=== PATIENT | male | born 1960 | race Caucasian/White ===

== ENCOUNTER 2018-01-29 08:31 | Emergency (ER) | payer SELFPAY ==
[2018-01-29 08:45] VITALS: TEMP 98.2
--- NOTE | 2018-01-29 09:05 | ED.PDOC ---
History of Present Illness - General Chief Complaint: Cardiovascular Problem Stated Complaint: L foot discomfort, discoloration Time Seen by Provider: 01/29/18 09:04 Source: patient Exam Limitations: no limitations - History of Present Illness Initial Comments: Naman Caicedo 57 y/o male stated that he had been having numbness tingling on his whole left foot and pain bottom of foot when he walks the last one week denies history of fall.No chronic medical problem. Timing/Duration: 1 week Severity: moderate Improving Factors: nothing Worsening Factors: nothing Associated Symptoms: other - see hpi Allergies/Adverse Reactions: Allergies NO KNOWN ALLERGY Allergy (Verified 01/29/18 08:47) Home Medications: Ambulatory Orders Amitriptyline HCl [Amitriptyline Hydrochlori] 100 mg PO .QAM,NOON 01/29/18 Amitriptyline HCl [Elavil 100MG] 200 mg PO BEDTIME 01/29/18 Phenytoin Sodium Cap Extended [Dilantin Cap] 300 mg PO BEDTIME 01/29/18 Review of Systems - Review of Systems Constitutional: States: no symptoms reported EENTM: States: no symptoms reported Respiratory: States: no symptoms reported Gastrointestinal/Abdominal: States: no symptoms reported Genitourinary: States: no symptoms reported Musculoskeletal: States: see HPI Skin: States: no symptoms reported Endocrine: States: no symptoms reported Hematologic/Lymphatic: States: other - left foot bluish Past Medical History (General) - Patient Medical History Hx Seizures: Yes Hx Stroke: No Hx Congestive Heart Failure: No Hx Diabetes: No Surgical History: other - neck surgery - Vaccination History Hx Influenza Vaccination: No Hx Pneumococcal Vaccination: No - Social History Hx Tobacco Use: Yes Years Tobacco Use: 40 Cigarettes Packs Per Day: 20 Hx Chewing Tobacco Use: No Hx Alcohol Use: No Hx Substance Use: No Hx Physical Abuse: No Hx Emotional Abuse: No - Activities of Daily Living Grooming Ability: Independent Eating (Feeding) Ability: Independent Toileting Ability: Independent Family Medical History - Family History Father Living Status: Cause of : Old age Hx Family Diabetes: Yes - mom Physical Exam - Physical Exam General Appearance: Alert, Comfortable, No apparent distress Eye Exam: bilateral normal Ears, Nose, Throat: hearing grossly normal, normal ENT inspection, normal pharynx Neck: non-tender, full range of motion, supple Respiratory: lungs clear, normal breath sounds, no respiratory distress Cardiovascular/Chest: normal peripheral pulses, regular rate, rhythm, no murmur Peripheral Pulses: radial,right: 2+, radial,left: 2+, dorsalis pedis,right: 0 - left foot, dorsalis pedis,left: 0 - left foot, posterior tibialis,right: 0 - left foot, posterior tibialis,left: 0 - left foot Gastrointestinal/Abdominal: normal bowel sounds, non tender, soft Back Exam: no CVA tenderness, no vertebral tenderness Extremity: normal inspection, no pedal edema, no calf tenderness, other - bluish discoloration left foot,cold.arterial doppler negative;positive femoral artery pulsation Neurologic: no motor/sensory deficits, alert, oriented x 3 Skin Exam: normal color, warm/dry Progress - Progress Progress: 01/29/18 09:29 Vital Signs - 8 hr 01/29/18 08:44 Temperature 98.2 F Pulse Rate [ 115 H Left Radial] Respiratory 20 Rate Blood Pressure 161/108 [Left Arm] O2 Sat by Pulse 96 Oximetry - Results/Orders Results/Orders: 01/29/18 09:30 IV Care:Saline Lock per Protoc QSHIFT 01/29/18 11:00 Heparin Premix [Heparin/D5w 25,000U/500ML] 25,000 units Premix Bag 1 bag IVS PRN Laboratory Results - last 24 hr 01/29/18 01/29/18 01/29/18 09:55 09:55 09:55 WBC 9.5 RBC 4.40 L Hgb 16.5 Hct 48.2 MCV 109.6 H MCH 37.5 H MCHC 34.1 RDW 16.1 H Plt Count 290 MPV 7.0 L Absolute Neuts (auto) 7.70 H Absolute Lymphs (auto) 0.90 L Absolute Monos (auto) 0.80 Absolute Eos (auto) 0.00 Absolute Basos (auto) 0.10 Neutrophils % 80.8 H Lymphocytes % 9.1 L Monocytes % 9.0 Eosinophils % 0.5 L Basophils % 0.6 PT 10.2 INR 1.02 PTT (SP) 24.7 Sodium 138 Potassium 4.0 Chloride 97 L Carbon Dioxide 32 H Anion Gap 13.0 BUN < 5 L Creatinine 0.67 BUN/Creatinine Ratio 7.5 L Random Glucose 91 Serum Osmolality 271.8 L Calcium 8.4 Total Bilirubin 0.3 AST 24 ALT 14 Alkaline Phosphatase 154 H Serum Total Protein 7.1 Albumin 2.9 L Globulin 4.2 H Albumin/Globulin Ratio 0.7 L Urine Color Urine Appearance Urine pH Ur Specific Potter Urine Protein Urine Glucose (UA) Urine Ketones Urine Blood Urine Nitrite Urine Bilirubin Urine Urobilinogen Ur Leukocyte Esterase Urine RBC Urine WBC Ur Epithelial Cells Urine Bacteria 01/29/18 09:55 WBC RBC Hgb Hct MCV MCH MCHC RDW Plt Count MPV Absolute Neuts (auto) Absolute Lymphs (auto) Absolute Monos (auto) Absolute Eos (auto) Absolute Basos (auto) Neutrophils % Lymphocytes % Monocytes % Eosinophils % Basophils % PT INR PTT (SP) Sodium Potassium Chloride Carbon Dioxide Anion Gap BUN Creatinine BUN/Creatinine Ratio Random Glucose Serum Osmolality Calcium Total Bilirubin AST ALT Alkaline Phosphatase Serum Total Protein Albumin Globulin Albumin/Globulin Ratio Urine Color Yellow Urine Appearance Clear Urine pH 6.5 Ur Specific Potter 1.015 Urine Protein Negative Urine Glucose (UA) Negative Urine Ketones Negative Urine Blood Trace-intact H Urine Nitrite Negative Urine Bilirubin Negative Urine Urobilinogen 0.2 Ur Leukocyte Esterase Negative Urine RBC 0-1 Urine WBC 0 Ur Epithelial Cells 0 Urine Bacteria 0 Departure - Departure Clinical Impression: Arterial occlusion, lower extremity Time of Disposition: 11:57 Disposition: Transfer to Hospital Condition: Fair Departure Forms: Patient Portal Self Enrollment Home Medications: Ambulatory Orders Amitriptyline HCl [Amitriptyline Hydrochlori] 100 mg PO .QAM,NOON 01/29/18 Amitriptyline HCl [Elavil 100MG] 200 mg PO BEDTIME 01/29/18 Phenytoin Sodium Cap Extended [Dilantin Cap] 300 mg PO BEDTIME 01/29/18 Transfer to Outside Facility - Transfer Information Accepting Provider:: D/W Dr. Chaz Hickey Accepting Facility: [facility], [place] - D Reason for Transfer: required specialist not available - vasculoar surgeon
[2018-01-29] MEDS ORDERED: ASPIRIN TABLET 325 MG TAB PO ONE (09:30)
[2018-01-29] MEDS ORDERED: PRAVASTATIN SODIUM 20 MG TAB PO ONE (09:31)
[2018-01-29] MEDS ORDERED: LABETALOL INJ 5 MG/ML VIAL IV ONE (09:32)
--- NOTE | 2018-01-29 09:55 | RAD ---
PROCEDURE: Foot,Left 3 Views CLINICAL HISTORY: pain INDICATION: Same as above COMPARISON: None . TECHNIQUE: Three Views of the left foot were done. FINDINGS: There is no evidence of acute fractures or dislocation involving the bones of the left foot. There is no evidence of any periosteal reactions. The joint spaces are relatively well-maintained. There is no evidence of bony tarsal coalition. The soft tissues are radiographically unremarkable. There is no visualization of any radiopaque foreign bodies in the visualized soft tissues. IMPRESSION: Negative for acute or significant bony findings involving the left foot Electronically signed by: Reid Cabrales MD 01/29/2018 9:53 AM CDT Workstation: [id number]
[2018-01-29] MEDS ORDERED: HEPARIN PREMIX 25,000 UNITS in PREMIX BAG 1 BAG IVS SCH (11:00)
[2018-01-29] MEDS ORDERED: HEPARIN PREMIX 500 ML ONE (11:12)
[2018-01-29] MEDS ORDERED: PHENYTOIN SODIUM CAP EXTENDED 100 MG CAP PO ONE ×2 (12:52)
[2018-01-29 13:05] VITALS: BP 164/107; O2SAT 95
== END 2018-01-29 13:00 | disposition short-term general hospital (02) ==
LOC: ER 08:31
DX: I77.1 Stricture of artery (principal); R56.9 Unspecified convulsions; F17.210 Nicotine dependence, cigarettes, uncomplicated; Z79.899 Other long term (current) drug therapy
CPT/HCPCS: 36415; 73630; 80053; 81001; 85025; 85610; 85730; J1644

== ENCOUNTER 2018-02-16 09:22 | Emergency (ER) | payer SELFPAY ==
--- NOTE | 2018-02-16 09:39 | ED.PDOC ---
History of Present Illness - General Chief Complaint: Syncope/Near Syncope Stated Complaint: passed out on the floor Time Seen by Provider: 02/16/18 09:24 Source: patient, EMS, other - neighbors Exam Limitations: clinical condition - History of Present Illness Initial Comments: Patient presents by EMS after being found on the floor by a neighbor this morning. It is unclear how long he was lying there but he says he passed out overnight. He was last seen at his normal mental baseline one week ago. The patient has a history or seizures for which he takes Dilantin but says that he has not had a seizure in a long time. He is a daily drinker. He claims to drink a six pack of beer per day which is down from his former 30 beers per day. He says that he has had DTs before from alcohol withdrawal. No other complaints at this time. Timing/Duration: unsure Severity: moderate Improving Factors: nothing, eating Associated Symptoms: denies symptoms Allergies/Adverse Reactions: Allergies NO KNOWN ALLERGY Allergy (Verified 01/29/18 08:47) Home Medications: Ambulatory Orders Amitriptyline HCl [Amitriptyline Hydrochlori] 100 mg PO .QAM,NOON 01/29/18 Amitriptyline HCl [Elavil 100MG] 200 mg PO BEDTIME 01/29/18 Phenytoin Sodium Cap Extended [Dilantin Cap] 300 mg PO BEDTIME 01/29/18 Past Medical History (General) - Patient Medical History Hx Seizures: Yes Hx Stroke: No Hx Congestive Heart Failure: No Hx Diabetes: No - Vaccination History Hx Influenza Vaccination: No Hx Pneumococcal Vaccination: No - Social History Hx Tobacco Use: Yes Hx Chewing Tobacco Use: No Hx Alcohol Use: No Hx Substance Use: No Hx Physical Abuse: No Hx Emotional Abuse: No Family Medical History - Family History Father Living Status: Cause of : Old age Hx Family Diabetes: Yes - mom Physical Exam - Physical Exam General Appearance: No apparent distress, Ill Appearing Eye Exam: bilateral normal Ears, Nose, Throat: normal ENT inspection Neck: non-tender, full range of motion, supple Respiratory: lungs clear, normal breath sounds Cardiovascular/Chest: tachycardia Gastrointestinal/Abdominal: normal bowel sounds, non tender, soft Extremity: other - Left toes 1-5 are necrotic. There is no palpable dorsal pedial pulse. 1+ dorsal pedis pulse on the right foot. Patient cannot feel nor move the left toes excep for mild sensation in the 5th toe. Full AROM in the bilateral lower legs and hips. Skin Exam: other - Multiple superficial abrasions onthe knees, forearms, elbows , fingers, and forehead Lymphatic: no adenopathy Progress - Progress Progress: 02/16/18 11:17 Laboratory Tests 02/16/18 02/16/18 02/16/18 09:50 09:50 09:50 WBC 14.8 H RBC 3.42 L Hgb 12.0 L Hct 35.9 L MCV 105.0 H MCH 35.0 H MCHC 33.3 RDW 17.6 H Plt Count 458 H MPV 7.0 L Absolute Neuts (auto) 12.30 H Absolute Lymphs (auto) 1.00 Absolute Monos (auto) 1.30 H Absolute Eos (auto) 0.00 Absolute Basos (auto) 0.10 Neutrophils % 83.2 H Lymphocytes % 7.0 L Monocytes % 9.0 Eosinophils % 0.3 L Basophils % 0.5 PT INR PTT (SP) Sodium 144 Potassium 3.7 Chloride 106 Carbon Dioxide 22 Anion Gap 19.7 H BUN 27 H Creatinine 1.14 BUN/Creatinine Ratio 23.7 H Random Glucose 78 Serum Osmolality 290.8 Calcium 9.0 Total Bilirubin 1.2 H AST 131 H ALT 67 H Alkaline Phosphatase 70 Creatine Kinase Serum Total Protein 8.3 H Albumin 3.0 L Globulin 5.3 H Albumin/Globulin Ratio 0.6 L Lipase 14 L TSH Thyroxine (T4) Salicylates Acetaminophen Phenytoin Ethyl Alcohol Cancelled 02/16/18 02/16/18 02/16/18 09:50 09:50 09:50 WBC RBC Hgb Hct MCV MCH MCHC RDW Plt Count MPV Absolute Neuts (auto) Absolute Lymphs (auto) Absolute Monos (auto) Absolute Eos (auto) Absolute Basos (auto) Neutrophils % Lymphocytes % Monocytes % Eosinophils % Basophils % PT 10.7 INR 1.07 PTT (SP) 25.3 Sodium Potassium Chloride Carbon Dioxide Anion Gap BUN Creatinine BUN/Creatinine Ratio Random Glucose Serum Osmolality Calcium Total Bilirubin AST ALT Alkaline Phosphatase Creatine Kinase 5277 H* Serum Total Protein Albumin Globulin Albumin/Globulin Ratio Lipase TSH 2.17 Thyroxine (T4) 8.20 Salicylates < 4.0 Acetaminophen < 10.0 L Phenytoin < 2.5 L Ethyl Alcohol < 5.40 wbc 14.8. Patient started on a banana bag due to his alcohol use. Unasyn 3 grams IV x one given for likely developing sepis and possible the need for surgery today. Patient transferred to [facility] to Dr. Syed. 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 He had already received tPA for 48 hours while at [facility]. He is on Apixiban and Clopidagrel already and the acuity of this ischemia is unknown so tPA was witheld for the time being, It also failed to work before so the risks versus benefits favored not using it. Departure - Departure Clinical Impression: Ischemic leg Disposition: Transfer to Hospital Condition: Fair Departure Forms: ED Discharge - Pt. Copy, Patient Portal Self Enrollment Diet: other - NPO Home Medications: Ambulatory Orders Amitriptyline HCl [Amitriptyline Hydrochlori] 100 mg PO .QAM,NOON 01/29/18 Amitriptyline HCl [Elavil 100MG] 200 mg PO BEDTIME 01/29/18 Phenytoin Sodium Cap Extended [Dilantin Cap] 300 mg PO BEDTIME 01/29/18
--- NOTE | 2018-02-16 09:48 | RAD ---
EXAM DESCRIPTION: Chest,1 View CLINICAL HISTORY: 57 years Male, altered mental status COMPARISON: None available. TECHNIQUE: AP radiograph of the chest was obtained. FINDINGS: Trachea is midline.The cardiomediastinal silhouette is normal in size. The pulmonary vasculature is within normal limits.The lungs are clear with no acute consolidation.No evidence of pleural effusions. IMPRESSION: No acute cardiopulmonary process. Electronically signed by: Mona Doyle MD 02/16/2018 9:47 AM CDT
[2018-02-16] MEDS ORDERED: MULTIPLE VITAMIN INJ 10 ML, THIAMINE HCL INJ 100 MG, FOLIC ACID INJ 1 MG in SODIUM CHLO... IVS SCH (10:00)
[2018-02-16] MEDS ORDERED: MULTIPLE VITAMIN 10 ML VIAL ONE (10:29)
[2018-02-16] MEDS ORDERED: SODIUM CHLORIDE 0.9% 1000ML 1,000 ML ONE (10:31)
[2018-02-16] MEDS ORDERED: FOLIC ACID INJ 5 MG/ML VIAL ONE (10:37)
[2018-02-16] MEDS ORDERED: THIAMINE HCL INJ 100 MG/ML VIAL ONE (10:38)
--- NOTE | 2018-02-16 11:01 | CT ---
EXAM DESCRIPTION: Head CLINICAL HISTORY: AMS COMPARISON: None available TECHNIQUE: Noncontrast head CT was performed with routine protocol. FINDINGS: Normal augustine-white matter differentiation. Ventricles and sulci are prominent consistent with age-related cerebral volume loss. Low density white matter is consistent with chronic microvascular ischemic changes. No high density hemorrhage, focal edema or shift of the midline. No sulcal effacement. Normal orbital contents. Basilar cisterns appear clear. Intact calvarium with no fracture or lytic lesion. Normal aeration of tympanic cavities and mastoid air cells. No fluid levels in the paranasal sinuses. Skull base appears intact. Symmetrical internal auditory canals. Coronal and sagittal reformatted images confirm the findings. IMPRESSION: No acute intracranial pathologic process. This exam was performed according to our departmental dose-optimization program, which includes automated exposure control, adjustment of the mA and/or kV according to patient size and/or use of iterative reconstruction technique. Total DLP equals 859.97 mGycm. Electronically signed by: Carlos Bishop MD 02/16/2018 10:59 AM CDT
[2018-02-16] MEDS ORDERED: AMPICILLIN & SULBACTAM SODIUM 3 GM in SODIUM CHL 0.9% 100ML MINI-BAG 100 ML IVPB ONE (11:14)
[2018-02-16] MEDS ORDERED: AMPICILLIN & SULBACTAM SODIUM 3 GM VIAL ONE (11:20)
[2018-02-16] MEDS ORDERED: SODIUM CHL 0.9% 100ML MINI-BAG 100 ML IVPB ONE (11:20)
[2018-02-16 12:24] VITALS: BP 151/93; TEMP 99.2; O2SAT 96
== END 2018-02-16 12:20 | disposition short-term general hospital (02) ==
LOC: ER 09:22
DX: I99.8 Other disorder of circulatory system (principal); R55 Syncope and collapse; I96 Gangrene, not elsewhere classified; Z87.891 Personal history of nicotine dependence; S80.811A Abrasion, right lower leg, initial encounter; S80.812A Abrasion, left lower leg, initial encounter; S00.81XA Abrasion of other part of head, initial encounter; S60.419A Abrasion of unspecified finger, initial encounter; S50.812A Abrasion of left forearm, initial encounter; S50.811A Abrasion of right forearm, initial encounter; R56.9 Unspecified convulsions; Z79.899 Other long term (current) drug therapy; F10.99 Alcohol use, unspecified with unspecified alcohol-induced disorder; W18.39XA Other fall on same level, initial encounter; Y92.9 Unspecified place or not applicable
CPT/HCPCS: 36415; 70450; 71045; 80053; 80185; 80307; 80320; 80329; 82550; 83605; 83690; 84436; 84443; 85025; 85610; 85730; 87040; 93005; J0295; J3411; J7030; J7050